=== PATIENT | female | born 1965 | race Caucasian/White ===

== ENCOUNTER 2017-03-10 09:24 | Emergency (ER) | payer BC ==
[2017-03-10] MEDS ORDERED: Ketorolac Tromethamine 30 MG/ML VIAL ONE (10:06)
[2017-03-10] MEDS ORDERED: methylPREDNISolone Sod Succ/PF 125 MG/2 ML VIAL ONE (10:06)
[2017-03-10] MEDS ORDERED: Prochlorperazine 10 MG/2 ML VIAL ONE (10:06)
[2017-03-10] MEDS ORDERED: diphenhydrAMINE 50 MG/ML VIAL ONE (10:06)
[2017-03-10] MEDS ORDERED: Fentanyl 100 MCG/2 ML VIAL ONE (10:49)
== END 2017-03-10 11:31 | disposition home or self-care (01) ==
LOC: BURERS 09:24
DX: G43.909 Migraine, unspecified, not intractable, without status migrainosus (principal); F41.9 Anxiety disorder, unspecified; F32.9 Major depressive disorder, single episode, unspecified; Z79.899 Other long term (current) drug therapy
CPT/HCPCS: 96361; 96374; 96375; J0780; J1200; J1885; J2930; J3010

== ENCOUNTER 2018-08-27 11:52 | Outpatient (CLI) | payer BC ==
--- NOTE | 2018-08-27 18:06 | RAD ---
RIGHT SHOULDER THREE VIEWS: 08/27/17 There appears to have been prior surgery involving the shoulder. No acute fracture, dislocation, or AC joint widening was seen. The various joints showed no acute change. No periarticular calcification was seen. Some faint calcification in the humeral neck is probably chronic. IMPRESSION: No acute findings. POS: HOME
== END 2018-08-27 11:53 | disposition home or self-care (01) ==
LOC: BURRAD 11:52
PROVIDERS: ATTEND Orthopaedic Surgery
DX: M25.511 Pain in right shoulder (principal)